=== PATIENT | male | born 1990 | race Caucasian/White ===

== ENCOUNTER 2017-01-20 07:11 | Outpatient (CLI) | payer SELFPAY ==
[2017-01-20] MEDS ORDERED: NACL ONE (08:07)
--- NOTE | 2017-01-20 09:03 | Cat Scan Report ---
CT ABDOMEN PELVIS WITH AND WITHOUT CONTRAST HISTORY: Gross hematuria. TECHNIQUE: Helical CT before and after IV contrast. CT urogram protocol. Sagittal and coronal reformatted images. Rotational MIP images. COMPARISON: None at this facility. FINDINGS: Both kidneys are normal size, contour and position. There is no evidence for nephrolithiasis, cystic disease, mass, hydronephrosis or perinephric fluid. Bilateral single ureters are normal course and caliber. There is normal bladder wall thickness and normal filling of the bladder. Normal prostate gland. CT urogram images demonstrate no abnormality. There is mild fatty change of the liver. No focal liver mass or surface nodularity. The spleen is normal size. Normal biliary system, pancreas, adrenal glands, aorta and bowel loops. The appendix is not confidently identified. No evidence for ascites, adenopathy, free air or inflammatory changes. Heart size is normal. The lung bases are clear. There is mild dextroscoliosis in the lumbar region. No bony lesion or fracture. IMPRESSION: Normal CT urogram. No explanation for gross hematuria. Mild fatty change in the liver. Mild scoliosis.
== END 2017-01-20 07:12 | disposition home or self-care (01) ==
LOC: CT 07:11
PROVIDERS: ATTEND Urology
DX: K76.0 Fatty (change of) liver, not elsewhere classified (principal); R31.0 Gross hematuria; M41.86 Other forms of scoliosis, lumbar region
CPT/HCPCS: 74178; Q9967